=== PATIENT | female | born 1960 | race Caucasian/White ===

== ENCOUNTER 2016-10-27 15:20 | Emergency (ER) | payer MEDICAID, OTHER ==
[~2016-10-27 15:20] MED LIST: ALBU1AER INH; PRIL40CA PO
[2016-10-27 15:24] VITALS: BP 131/67; PULSE 80; RESP 18; TEMP 98; O2SAT 95
--- NOTE | 2016-10-27 15:40 | PD ---
Physical Exam Time Seen by Provider: 15:37 Narrative 56yo F c/o lower abd pain x 1.5 weeks with L flank pain since Monday afternoon. +nausea w.o vomiting. + constipation. Denies diarrhea. Hx of diverticulitis and says symptoms are consistent. Denies fever. Patient seen in triage. VS reviewed. Awaiting bed placement. Data Data Last Documented VS Vital Signs Date Time Temp Pulse Resp B/P Pulse Ox O2 Delivery O2 Flow Rate FiO2 10/27/16 15:24 98.0 80 18 131/67 95 MDM Supervised Visit with CARINE: Brooke Candelaria Oct 27, 2016 15:39
[2016-10-27 16:12] LABS: AUTOMATED NEUTROPHIL # 3.9 TH/MM3 (1.8-7.7); BASOPHIL % 0.8 % (0.0-2.0); EOSINOPHIL # 0.1 TH/MM3 (0-0.4); EOSINOPHIL % 1.5 % (0.0-4.0); HEMATOCRIT 40.9 % (35.0-46.0); HEMO FLAGS DIFF FINAL; LYMPH % 29.3 % (9.0-44.0); LYMPHOCYTE # 1.8 TH/MM3 (1.0-4.8); MEAN CELL VOLUME 85.3 FL (80.0-100.0); MEAN CORPUSCULAR HEMOGLOBIN 29.1 PG (27.0-34.0); MEAN CORPUSCULAR HGB CONC 34.1 % (32.0-36.0); MONO % 5.1 % (0.0-8.0); NEUT % 63.3 % (16.0-70.0); PLATELET COUNT 267 TH/MM3 (150-450); RED BLOOD COUNT 4.79 MIL/MM3 (4.00-5.30); RED CELL DISTRIBUTION WIDTH 13.9 % (11.6-17.2); WHITE BLOOD COUNT 6.1 TH/MM3 (4.0-11.0)
[2016-10-27 16:38] LABS: ALT (GPT) 29 U/L (10-53); ANION GAP 4 MEQ/L (5-15); AST (GOT) 13 U/L (15-37); BICARBONATE 29.4 MEQ/L (21.0-32.0); BLOOD UREA NITROGEN 15 MG/DL (7-18); CHLORIDE 105 MEQ/L (98-107); GLOMERULAR FILTRATION RATE 75 ML/MIN (>89); SODIUM (NA) 138 MEQ/L (136-145)
[2016-10-27 16:40] LABS: ALKALINE PHOSPHATASE 55 U/L (45-117); TOTAL BILIRUBIN ADULT 0.4 MG/DL (0.2-1.0)
[2016-10-27] MEDS ORDERED: ADVA45AE INH (17:13)
[2016-10-27] MEDS ORDERED: OMEP40CA2 PO (17:13)
--- NOTE | 2016-10-27 17:20 | PD ---
HPI Chief Complaint: GI Complaint Time Seen by Provider: 17:15 Travel History International Travel<30 days: No Contact w/Intl Traveler<30days: No Traveled to known affect area: No History of Present Illness HPI Patient comes in complaining of suprapubic abdominal pain that began little over a week ago she describes as an achiness without radiation. Patient states 3 days ago she began having low back pain is worse with certain movement. Patient thought that she may had walked funny while at the store aggravating her low back. Denies any trauma or radiation of the pain. Denies any fevers, nausea, vomiting, chest pain, shortness of breath, numbness or tingling anywhere , loss or change in bladder. Patient states she does go back and forth between loose stools and formed stool which is not unusual for her. Patient states over the past few days her stools have been harder. Patient denies any melena or hematochezia. PFSH Past Medical History Arthritis: Yes (osteoarthritis) Asthma: Yes Diabetes: Yes (does not take med) Patient Takes Glucophage: No Diminished Hearing: No Diverticulitis: Yes Gastrointestinal Disorders: Yes (diverticulitis) GERD: Yes Respiratory: Yes (asthma) Immunizations Current: No Tetanus Vaccination: < 5 Years Influenza Vaccination: Yes ?: Not Menopausal: Yes : 5 Para: 4 Miscarriage: 1 Past Surgical History Abdominal Surgery: Yes (HERNIA REPAIR) Tonsillectomy: Yes Other Surgery: Yes Social History Alcohol Use: No Tobacco Use: No Substance Use: No Allergies-Medications (Allergen,Severity, Reaction): Coded Allergies: Orellana (Verified Allergy, Severe, Swelling, 10/27/16) Penicillin (Verified Allergy, Severe, Rash, 10/27/16) Sulfa (Verified Allergy, Unknown, rash, 10/27/16) Clindamycin (Verified Adverse Reaction, Severe, Rash, 10/27/16) Reported Meds & Prescriptions Reported Meds & Active Scripts Active Reported Omeprazole 40 Mg Cap 40 Mg PO DAILY Review of Systems Except as stated in HPI: all other systems reviewed are Neg Physical Exam Narrative GENERAL: Well-developed, overly nourished, in no acute distress, and non-ill appearing. SKIN: Focused skin assessment warm and dry. HEAD: Atraumatic. Normocephalic. EYES: Pupils equal and round. EOMI. No scleral icterus. No injection or drainage. ENT: No nasal bleeding or discharge. Mucous membranes pink and moist. NECK: Trachea midline. No JVD. Supple. No nuclear rigidity. CARDIOVASCULAR: Regular rate and rhythm. No murmur appreciated. RESPIRATORY: No accessory muscle use. No respiratory distress. GASTROINTESTINAL: Abdomen soft, nondistended, and without guarding. Hepatic and splenic margins not palpable. Normal bowel sounds 4. No pulsatile mass. Patient reports minimal tenderness to palpation over suprapubic area. MUSCULOSKELETAL: No obvious deformities. No clubbing. No cyanosis. No edema. Full range of motion. NEUROLOGICAL: Awake and alert. No obvious cranial nerve deficits. Motor grossly within normal limits. Normal speech. PSYCHIATRIC: Appropriate mood and affect; insight and judgment normal. Data Data Last Documented VS Vital Signs Date Time Temp Pulse Resp B/P Pulse Ox O2 Delivery O2 Flow Rate FiO2 10/27/16 18:06 17 10/27/16 15:24 98.0 80 131/67 95 Orders Complete Blood Count With Diff (10/27/16 15:39) Comprehensive Metabolic Panel (10/27/16 15:39) Urinalysis - C+S If Indicated (10/27/16 15:39) Iv Access Insert/Monitor (10/27/16 15:39) Lipase (10/27/16 15:39) Ondansetron Inj (Zofran Inj) (10/27/16 18:00) Morphine Inj (Morphine Inj) (10/27/16 18:00) Ct Abd/Pel W/O Iv Contrast (10/27/16 ) Labs Laboratory Tests Test 10/27/16 10/27/16 15:45 16:50 White Blood Count 6.1 TH/MM3 Red Blood Count 4.79 MIL/MM3 Hemoglobin 13.9 GM/DL Hematocrit 40.9 % Mean Corpuscular Volume 85.3 FL Mean Corpuscular Hemoglobin 29.1 PG Mean Corpuscular Hemoglobin 34.1 % Concent Red Cell Distribution Width 13.9 % Platelet Count 267 TH/MM3 Mean Platelet Volume 9.0 FL Neutrophils (%) (Auto) 63.3 % Lymphocytes (%) (Auto) 29.3 % Monocytes (%) (Auto) 5.1 % Eosinophils (%) (Auto) 1.5 % Basophils (%) (Auto) 0.8 % Neutrophils # (Auto) 3.9 TH/MM3 Lymphocytes # (Auto) 1.8 TH/MM3 Monocytes # (Auto) 0.3 TH/MM3 Eosinophils # (Auto) 0.1 TH/MM3 Basophils # (Auto) 0.0 TH/MM3 CBC Comment DIFF FINAL Differential Comment Sodium Level 138 MEQ/L Potassium Level 4.0 MEQ/L Chloride Level 105 MEQ/L Carbon Dioxide Level 29.4 MEQ/L Anion Gap 4 MEQ/L Blood Urea Nitrogen 15 MG/DL Creatinine 0.80 MG/DL Estimat Glomerular Filtration 75 ML/MIN Rate Random Glucose 145 MG/DL Calcium Level 9.1 MG/DL Total Bilirubin 0.4 MG/DL Aspartate Amino Transf 13 U/L (AST/SGOT) Alanine Aminotransferase 29 U/L (ALT/SGPT) Alkaline Phosphatase 55 U/L Total Protein 7.7 GM/DL Albumin 3.8 GM/DL Lipase 117 U/L Urine Color LIGHT-YELLOW Urine Turbidity CLEAR Urine pH 6.0 Urine Specific [place] 1.013 Urine Protein NEG mg/dL Urine Glucose (UA) NEG mg/dL Urine Ketones NEG mg/dL Urine Occult Blood NEG Urine Nitrite NEG Urine Bilirubin NEG Urine Urobilinogen LESS THAN 2.0 MG/DL Urine Leukocyte Esterase TRACE Urine WBC LESS THAN 1 /hpf Microscopic Urinalysis Comment CULT NOT INDICATED MDM Medical Decision Making Medical Screen Exam Complete: Yes Emergency Medical Condition: Yes Interpretation(s) CT the abdomen and pelvis read by the radiologist shows: 1. No acute abnormality demonstrated. 2. Stable 14 mm calcified splenic artery aneurysm. 3. Stable moderate size hiatal hernia. 4. Diverticulosis again seen in the sigmoid colon. No diverticulitis. Differential Diagnosis UTI, pancreatitis, electrolyte abnormality, dehydration, renal calculi, constipation, other Narrative Course The patient presented with nonspecific abdominal pain. There was no significant history of vomiting or diarrhea and no fever. The patient appeared comfortable, well hydrated and the abdominal exam was mildly tender without guarding or rebound and no focal tenderness to me. Laboratory and CT evaluation revealed no significant abnormalities. There was no evidence of an acute, surgical abdomen at this time. There was no clinical evidence to support appendicitis, bowel obstruction, cholecystitis/cholelithiasis, pancreatitis, perforation of gastric ulcer, colitis, diverticulitis, bacterial peritonitis, obstruction, volvulus, hernial incarceration or strangulation at this time. There was no evidence to support vascular pathology such as AAA, mesenteric ischemia. There was also no clinical evidence by history, exam or risk factors to suggest atypical presentation of cardiac disease such as ACS, AMI or atypical angina. No evidence to suggest genitourinary etiology as well. Clinical picture was discussed with the patient, as well as plan of care. The patient was instructed to follow up with their physician. Abdominal pain warnings were discussed with the patient. The patient is to return if worsens, pain worsens or changes, develop fever, inability to tolerate fluids with or without vomiting, unable to establish follow up or as needed. The patient agrees with plan. The patient presented complaining of back pain. There was no history of recent fall or blunt trauma. However, history elicited activity likely causing muscular strain and injury. There was no evidence to support genitourinary etiology. There is also no evidence to suggest vascular pathology such as AAA dissection. No fevers or other evidence to suspect infectious processes, abscess , osteomyelitis etc. The patients neurological exam is normal with normal motor and sensory. There is no saddle paresthesias reported and no bowel or bladder incontinence or retention. I suspect the pain is mechanical in nature. Clinical suspicion, plan of care and management was discussed with the patient. The patient was instructed to follow up with their health care provider. The patient was also instructed to return if the pain worsened, changed, or developed weakness or bowel or bladder trouble. The patient agreed with plan. Patient in no obvious distress upon re-evaluation. All pertinent laboratory/ Radiology result(s) discussed with patient including the chronic stable 14 mm calcified splenic artery aneurysm, hiatal hernia, and diverticulosis without diverticulitis. Discussed patient with Dr. Haynes, who saw and evaluated the patient and is in agreement with plan of care and disposition. Any questions/ concerns in reference to patient diagnosis/condition discussed and clarified prior to patient's discharge. Reinforced sheer importance of close follow up with patient's primary physician or primary care clinic. Instructed patient to return to ED immediately, if symptoms return/worsen. Pt showed understanding of above instructions. Further instructions and recommendations were detailed in discharge paperwork. Pt ambulated without difficulty out of ED at discharge. Diagnosis Primary Impression: Abdominal pain Qualified Code: R10.30 - Lower abdominal pain Additional Impression: Low back pain Qualified Code: M54.5 - Acute midline low back pain without sciatica Patient Instructions: Abdominal Pain (ED), Acute Low Back Pain (ED), General Instructions Additional Instructions: Follow-up with your primary care physician in one to 3 days for evaluation. Use over the counter Tylenol and/or ibuprofen as needed for pain. Follow instructions on the packaging. Return to the emergency department if symptoms get worse. Disposition: 01 DISCHARGE HOME Condition: Silviano Maxwell Oct 27, 2016 17:20
[2016-10-27 17:33] LABS: BLOOD, URINE NEG (NEG); COMMENT (UR) CULT NOT INDICATED; CULTURE IF INDICATED CULT NOT INDICATED; GLUCOSE,URINE NEG (NEG); KETONE, URINE NEG (NEG); NITRITE,URINE NEG (NEG); URINE COLOR LIGHT-YELLOW (YELLW/STRAW)
[2016-10-27] MEDS ORDERED: ONDANSETRON HCL 4 MG/2 ML VIAL IV PUSH ONE (18:00)
[2016-10-27] MEDS ORDERED: MORPHINE SULFATE 4 MG/ML INJ IV PUSH ONE (18:00)
[2016-10-27 18:06] VITALS: RESP 17
--- NOTE | 2016-10-27 19:01 | PD ---
Physical Exam Narrative I, Dr. Haynes, have reviewed the advance practice practitioner's documentation and am in agreement, met with the patient face to face, made the diagnosis, and the medical decision making was done by me. *My assessment and Findings: Lower abdominal pain 56yo F with left lower abdominal pain. No fever, nausea or vomiting. Abdomen is soft, tender only to left lower abdomen. No rebound tenderness or guarding. Labs reviewed, no leukocytosis. CMP unremarkable. Lipase normal. UA showed trace leukocyte. WBC negative. Culture not indicated. Pt given morphine 2mg IV. Will obtain CTa/p. CTa/p showed no acute abnormality. Stable 14mm calcified splenic artery aneurysm. Stable hiatal hernia. Diverticulosis in sigmoid colon. No diverticulitis. Pt reevaluated at bedside and feels better. Abdomen is soft, NT/ND. Return precautions given. Informed pt of the CT results and to follow up as outpatient. Data Data Last Documented VS Vital Signs Date Time Temp Pulse Resp B/P Pulse Ox O2 Delivery O2 Flow Rate FiO2 10/27/16 18:06 17 10/27/16 15:24 98.0 80 131/67 95 Orders Complete Blood Count With Diff (10/27/16 15:39) Comprehensive Metabolic Panel (10/27/16 15:39) Urinalysis - C+S If Indicated (10/27/16 15:39) Iv Access Insert/Monitor (10/27/16 15:39) Lipase (10/27/16 15:39) Ondansetron Inj (Zofran Inj) (10/27/16 18:00) Morphine Inj (Morphine Inj) (10/27/16 18:00) Ct Abd/Pel W/O Iv Contrast (10/27/16 ) Labs Laboratory Tests Test 10/27/16 10/27/16 15:45 16:50 White Blood Count 6.1 TH/MM3 Red Blood Count 4.79 MIL/MM3 Hemoglobin 13.9 GM/DL Hematocrit 40.9 % Mean Corpuscular Volume 85.3 FL Mean Corpuscular Hemoglobin 29.1 PG Mean Corpuscular Hemoglobin 34.1 % Concent Red Cell Distribution Width 13.9 % Platelet Count 267 TH/MM3 Mean Platelet Volume 9.0 FL Neutrophils (%) (Auto) 63.3 % Lymphocytes (%) (Auto) 29.3 % Monocytes (%) (Auto) 5.1 % Eosinophils (%) (Auto) 1.5 % Basophils (%) (Auto) 0.8 % Neutrophils # (Auto) 3.9 TH/MM3 Lymphocytes # (Auto) 1.8 TH/MM3 Monocytes # (Auto) 0.3 TH/MM3 Eosinophils # (Auto) 0.1 TH/MM3 Basophils # (Auto) 0.0 TH/MM3 CBC Comment DIFF FINAL Differential Comment Sodium Level 138 MEQ/L Potassium Level 4.0 MEQ/L Chloride Level 105 MEQ/L Carbon Dioxide Level 29.4 MEQ/L Anion Gap 4 MEQ/L Blood Urea Nitrogen 15 MG/DL Creatinine 0.80 MG/DL Estimat Glomerular Filtration 75 ML/MIN Rate Random Glucose 145 MG/DL Calcium Level 9.1 MG/DL Total Bilirubin 0.4 MG/DL Aspartate Amino Transf 13 U/L (AST/SGOT) Alanine Aminotransferase 29 U/L (ALT/SGPT) Alkaline Phosphatase 55 U/L Total Protein 7.7 GM/DL Albumin 3.8 GM/DL Lipase 117 U/L Urine Color LIGHT-YELLOW Urine Turbidity CLEAR Urine pH 6.0 Urine Specific [place] 1.013 Urine Protein NEG mg/dL Urine Glucose (UA) NEG mg/dL Urine Ketones NEG mg/dL Urine Occult Blood NEG Urine Nitrite NEG Urine Bilirubin NEG Urine Urobilinogen LESS THAN 2.0 MG/DL Urine Leukocyte Esterase TRACE Urine WBC LESS THAN 1 /hpf Microscopic Urinalysis Comment CULT NOT INDICATED MDM Supervised Visit with CARINE: Yes Diagnosis Primary Impression: Abdominal pain Qualified Code: R10.32 - Left lower quadrant pain Татьяна Haynes DO Oct 27, 2016 19:01
--- NOTE | 2016-10-27 19:20 | RADRPT ---
EXAM DATE/TIME: 10/27/2016 18:58 [facility] COMPARISON: CT ABDOMEN & PELVIS W/O CONTRAST, August 02, 2015, 4:38. INDICATIONS : Abdominal and back pain. ORAL CONTRAST: No oral contrast ingested. RADIATION DOSE: 16.54 CTDIvol (mGy) MEDICAL HISTORY : Diverticulitis. Diabetes mellitus type 2. SURGICAL HISTORY : Hernia repair. ENCOUNTER: Initial ACUITY: 1 day PAIN SCALE: 7/10 LOCATION: Paraspinal and abdomen TECHNIQUE: Volumetric scanning of the abdomen and pelvis was performed. Using automated exposure control and ad justment of the mA and/or kV according to patient size, radiation dose was kept as low as reasonably achievable to obtain optimal diagnostic quality images. FINDINGS: LOWER LUNGS: The visualized lower lungs are clear. LIVER: Homogeneous density without lesion. There is no dilation of the biliary tree. No calcified gallston es. SPLEEN: Normal size without lesion. Unchanged partly calcified splenic artery aneurysm measuring 14 mm. PANCREAS: Within normal limits. KIDNEYS: Normal in size and shape. There is no mass, stone, or hydronephrosis. ADRENAL GLANDS: Within normal limits. VASCULAR: There is no aortic aneurysm. BOWEL/MESENTERY: There is moderate diverticulosis of the sigmoid colon. No diverticulitis or other acute inflammatory changes. No free fluid. Moderate-sized hiatal hernia again noted. ABDOMINAL WALL: Within normal limits. RETROPERITONEUM: There is no lymphadenopathy. BLADDER: No wall thickening or mass. REPRODUCTIVE: Within normal limits. INGUINAL: There is no lymphadenopathy or hernia. MUSCULOSKELETAL: No acute bony abnormality demonstrated. CONCLUSION: 1. No acute abnormality demonstrated. 2. Stable 14 mm calcified splenic artery aneurysm. 3. Stable moderate size hiatal hernia. 4. Diverticulosis again seen in the sigmoid colon. No diverticulitis. Camilo Villavicencio MD on October 27, 2016 at 19:16 Board Certified Radiologist. This report was verified electronically.
== END 2016-10-27 19:49 | disposition home or self-care (01) ==
LOC: NEPD 15:20
DX: R10.32 Left lower quadrant pain (principal); M54.5 Low back pain; K57.30 Diverticulosis of large intestine without perforation or abscess without bleeding; K44.9 Diaphragmatic hernia without obstruction or gangrene; K21.9 Gastro-esophageal reflux disease without esophagitis; J45.909 Unspecified asthma, uncomplicated; E11.9 Type 2 diabetes mellitus without complications
CPT/HCPCS: 74176; 80053; 81001; 83690; 85025; 96374; 96375; 99285; J2270; J2405